=== PATIENT | male | born 1995 | race Two or more races ===

== ENCOUNTER → 2018-05-31 | Outpatient (CLI) | payer OTHER ==
--- NOTE | 2018-05-31 15:08 | ECHO ---
[email or web address] [address] [address] Main: [phone] Fax: Transthoracic Echocardiogram Name: FAROOQ FLOWERS MR#: [id number] Study Date: 05/31/2018 Study Time: 01:57 PM Date of : 1995 Age: 22 year(s) Height: 175.3 cm (69 in.) Weight: 61.24 kg (135 lb.) BSA: 1.75 m2 Gender: Male Examination: Echo Indication: heart murmur, fatigue Image Quality: Adequate Contrast: Requested by: Kameron Olivier BP: / Heart Rate: Rhythm: Indication: heart murmur, fatigue Procedure Staff Claim Auditor: Chantal Batista [facility] Reading Physician: Steve Quintero MD Requesting Provider: Conclusions: Normal size left ventricle. No LV hypertrophy. Normal global systolic LV function. EF is 55 %. No regional wall motion abnormality. Normal diastolic LV function. Normal size right ventricle. The left atrium is normal in size. The right atrium is normal in size. The mitral valve is normal in appearance and function. Mild mitral valve regurgitation is present. The aortic valve is tri-leaflet. Mild aortic valve regurgitation is present. The tricuspid valve is normal in appearance and function. Trivial tricuspid valve regurgitation. Trivial pulmonic valve regurgitation. Normal size aortic root measuring 2.4 cm. No pericardial effusion. Measurements: Chambers Valvular Assessment AV/MV Valvular Assessment TV/PV Normal Normal Normal Name Value Range Name Value Range Name Value Range Ao Bertha (2D): 2.4 cm (1.4 cm-2.6 AV Vmax: 1.22 m/s (1 m/s-1.7 PV Vmax: 0.88 m/s (0.6 m/s-0.9 cm) m/s) m/s) IVSd (2D): 0.9 cm (0.6 cm-1.1 AV maxP mmHg ( - ) PV PGmax: 3 mmHg ( - ) cm) AV meanP mmHg ( - ) LVDd (2D): 4.9 cm (4.2 cm-5.9 PORTIA (VTI): 2.0 cm ( - ) cm) MV E Vmax: 0.69 m/s ( - ) Patient: FAROOQ FLOWERS Study Date: 05/31/2018 Page 1 of 2 01:57 PM LVDs (2D): 3.4 cm (2.1 cm-4 MV A Vmax: 0.43 m/s ( - ) cm) MV E/A: 1.60 ( - ) LVPWd (2D): 1.0 cm (0.6 cm-1 MV PHT: 0.057 s ( - ) cm) MVA (PHT): 3.9 s ( - ) LVOTd 2.0 cm 2.0 cm mm LVEF (BP): 55 % (>=55 %) RVDd(2D): 3.0 cm (1.9 cm-3.8 cmmm) Continued Measurements: Chambers Valvular Assessment AV/MV Name Value Name Value LADs: 3.3 cm MV DecTime: 173 m/s LA Volume: 27 ml MV E' Septal: 0.11 m/s LA Volume Index: 15.4 ml/m2 MV E/E' Septal: 6.50 RA Area: 14.2 cm2 MV E/E' Lateral: 5.00 Additional Vessels Name Value Ao Ascendin.2 cm Inferior Vena Cava: 1.3 cm Findings: Left Ventricle: Normal size left ventricle. No LV hypertrophy. Normal global systolic LV function. EF is 55 %. No regional wall motion abnormality. Normal diastolic LV function. Right Ventricle: Normal size right ventricle. Normal RV function. Left Atrium: The left atrium is normal in size. Right Atrium: The right atrium is normal in size. Mitral Valve: The mitral valve is normal in appearance and function. Mild mitral valve regurgitation is present. No mitral stenosis is present. Aortic Valve: The aortic valve is tri-leaflet. Mild aortic valve regurgitation is present. No aortic valve stenosis is present. Tricuspid Valve: The tricuspid valve is normal in appearance and function. Trivial tricuspid valve regurgitation. Pulmonic Valve: The pulmonic valve is normal in appearance and function. Trivial pulmonic valve regurgitation. Aorta: The aorta is normal. Normal size aortic root measuring 2.4 cm. Normal size ascending aorta measuring 2.2 cm. IVC: The IVC is normal sized. Pericardium: No pericardial effusion. No pleural effusion. (No Signature Object) Patient: FAROOQ FLOWERS Study Date: 05/31/2018 Page 2 of 2 01:57 PM [id number]
== END ==
LOC: FCP 13:35
PROVIDERS: ATTEND Family Medicine
DX: I08.3 Combined rheumatic disorders of mitral, aortic and tricuspid valves (principal)